=== PATIENT | male | born 1990 | race Caucasian/White ===

== ENCOUNTER 2017-06-15 03:05 | Emergency (ER) | payer OTHER ==
[~2017-06-15] VITALS: Ht 167.6 cm; Wt 70.3 kg
[2017-06-15 03:05] VITALS: TEMP 36.6; O2SAT 100; Ht 167.6 cm; Wt 70.3 kg
[2017-06-15 03:59] LABS: BUN/CREATININE RATIO 15.3 (10-20); CALCIUM 8.5 mg/dl (8.5-10.1); CREATININE 1.2 mg/dl (0.60-1.40); POTASSIUM 3.4 mmol/L (3.5-5.1)
--- NOTE | 2017-06-15 07:30 | EMERGENCY ROOM VISIT NOTE ---
History Report prepared by Jasmin: Maris Duron Under the Supervision of: Dr. Quyen Mccartney D.O. First contact with patient: 03:07 Chief Complaint: ALCOHOL OVERDOSE Stated Complaint: ALCOHOL OVERDOSE History of Present Illness The patient is a 26 year old male who presents to the Emergency Room with persistent alcohol intoxication starting [employer]. The patient was found swaying down the road alone. He states that he did drink beer today. He was trying to run and find his friends when he fell. He denies any LOC. He denies having any health problems. The history is limited due to the patient's intoxication. Source of History: patient History Limited By: intoxication Onset: [employer] Position: other (global) Quality: other (alcohol intoxication) Timing: other (persistent) Associated Symptoms: No LOC Review of Systems See HPI for pertinent positives & negatives. A total of 10 systems reviewed and were otherwise negative. Past Medical & Surgical Unobtainable as the patient is intoxicated. Family History Unobtainable due to patient's intoxication. Social History Alcohol Use: occasionally Marital Status: single Housing Status: lives with friends Occupation Status: employed Current/Historical Medications No Active Prescriptions or Reported Meds Allergies Coded Allergies: No Known Allergies (Unverified , 06/15/17) Physical Exam Vital Signs Date Time Temp Pulse Resp B/P (MAP) Pulse Ox O2 Delivery O2 Flow Rate FiO2 06/15/17 11:19 86 18 123/65 99 06/15/17 07:54 92 18 110/65 98 Room Air 06/15/17 05:06 80 15 93 06/15/17 05:01 111/52 06/15/17 04:36 74 15 92 06/15/17 04:31 104/46 06/15/17 04:06 79 16 92 06/15/17 04:01 107/53 06/15/17 03:35 85 17 94 06/15/17 03:31 126/74 06/15/17 03:25 107 06/15/17 03:10 122/81 06/15/17 03:05 100 Room Air 06/15/17 03:05 36.6 105 21 122/81 100 Room Air Physical Exam General: Hyperverbal, smells of alcohol. HEENT: Head - Abrasion and cephalohematoma to the back of the head in the right occiput. Pupils are equal, round, and reactive to light. Extraocular eye muscles are intact and sclera are anicteric. Ears - bilaterally patent canals with no evidence of hemotympanum. Nose - moist nasal mucosa without evidence of trauma or discharge. Mouth - moist buccal mucosa with no trauma to the teeth or signs of malocclusion. Neck: The neck is supple and there is no pain to palpation over the posterior cervical spine and no obvious step-offs or deformities. There is no JVD or tracheal deviation. Chest: There are no signs of deformities, contusions or abrasions to the chest wall. There is no obvious crepitus or paradoxical chest rise. Heart: Regular, rate, and rhythm. There is a normal S1 and S2 with no murmurs, clicks, or gallops appreciated. Lungs: Clear to auscultation bilaterally with no wheezes, rales, or rhonchi. Abdomen: Soft, completely nontender, nondistended, with good bowel sounds. There is no sign of trauma such as contusions, abrasions or penetrations. There are no palpable pulsatile masses or hepatosplenomegaly. There is no guarding, rigidity, or rebound noted. Pelvis: Stable to rock and compression. Extremities: Abrasions to both knees and palm of right hand, abrasion on the right ankle. There are easily palpable peripheral pulses. Neuro: The patient is awake and alert and easily able to follow commands. Muscle strength is 5 out of 5 in all 4 extremities. Otherwise, neuro exam is unremarkable. Back: The entire thoracic, lumbar, and sacral spine were palpated. There are no obvious step-offs or deformities noted. There are no obvious signs of trauma such as contusions abrasions penetrations noted to the back. Medical Decision & Procedures Laboratory Results 06/15/17 03:13 Test 06/15/17 03:13 Anion Gap 5.0 mmol/L (3-11) Est Creatinine Clear Calc Drug Dose 83.4 ml/min Estimated GFR () 95.5 Estimated GFR (Non- 82.4 BUN/Creatinine Ratio 15.3 (10-20) Calcium Level 8.5 mg/dl (8.5-10.1) Ethyl Alcohol mg/dL 284.0 mg/dl (0-3) Laboratory results per my review. ED Course 0311: The patient was evaluated in room A12B. A complete history and physical examination were performed. Nursing notes and previous electronic medical records were reviewed. Labs were drawn as above. The patient was observing the ekg monitor and pulse oximeter. 0450: The patient was awake and speaking with the nurses. He is cooperative. Vitals are stable. 0553: I reevaluated the patient. He is sound asleep and hemodynamically stable. 0620: The nurse will try waking up the patient to see if he can find a friend to go home with. The patient lives in [place] and drove himself to the [facility] parking lot where a friend picked him up. He will need to wait until he is more sober in order to drive. I calculated that he would not be sober until sometime afternoon. 0723: I reevaluated the patient. He is awake and has no complaints of pain. He will be discharged to a friend's house. Medical Decision The patient is a 26 year old male who presents to the ED with alcohol intoxication. Differential diagnosis includes alcohol overdose, drug intoxication, hypoglycemia, head injury. Labs: alcohol 284, normal renal function, glucose 126. This is a 26-year-old male patient who consumed too much alcohol this evening. Unfortunately he was running with friends when he tripped and fell. He does have a small cephalhematoma to the right occiput and some abrasions to his hands and knees. He had no loss of consciousness. His mental status is intact at this time. The patient had a blood alcohol level near 300. He was observed here in the emergency department until he was more sober. His mental status remained unchanged. He was encouraged to avoid such excessive alcohol use in the future. Impression Primary Impression: Alcohol overdose Additional Impression: Fall Scribe Attestation The scribe's documentation has been prepared under my direction and personally reviewed by me in its entirety. I confirm that the note above accurately reflects all work, treatment, procedures, and medical decision making performed by me. Departure Information Dispostion Home / Self-Care Prescriptions No Active Prescriptions or Reported Meds Forms HOME CARE DOCUMENTATION FORM, IMPORTANT VISIT INFORMATION Patient Instructions ED Overdose Alcohol, My [facility] [address] Additional Instructions Rest Take plenty of clear liquids and a bland diet Avoid alcohol use in the future Take tylenol for headaches Apply antibiotic ointment to your abrasions Problem Qualifiers Primary Impression: Alcohol overdose Encounter type: initial encounter Injury intent: accidental or unintentional Qualified Codes: T51.91XA - Toxic effect of unspecified alcohol , accidental (unintentional), initial encounter Additional Impression: Fall Encounter type: initial encounter Qualified Codes: W19.XXXA - Unspecified fall, initial encounter
[2017-06-15 11:19] VITALS: BP 123/65; PULSE 86; O2SAT 99
== END 2017-06-15 11:23 | disposition home or self-care (01) ==
LOC: C.EDA 03:08
DX: T51.91XA Toxic effect of unspecified alcohol, accidental (unintentional), initial encounter (principal); W19.XXXA Unspecified fall, initial encounter; Y90.8 Blood alcohol level of 240 mg/100 ml or more